=== PATIENT | female | born 2000 | race Caucasian/White ===

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

== ENCOUNTER 2021-01-11 16:20 | Emergency (ER) | payer SELFPAY ==
[~2021-01-11] VITALS: Ht 157.2 cm; Wt 57.3 kg
[~2021-01-11 16:20] MED LIST changes: +ALPR0.25 PO; -CALC600T12 PO; +CLC600T PO
--- NOTE | 2021-01-11 18:02 | Diagnostic Imaging Report ---
Indication: Fall, right arm injury. Comparison: None. Findings: 2 views of the right humerus demonstrate no fracture or dislocation. Articular surfaces are normal. No osseous lesion seen. Impression: Negative right humerus. Dictated by: Dictated on workstation # [id number]
--- NOTE | 2021-01-11 18:21 | ED Upper Extremity ---
General Chief Complaint: Upper Extremity Stated Complaint: FALL / R ELBOW INJ Nursing Triage Note: AMB TO ROOM WITH MOTHER PATIENT REPORTS WAS WATCHING TV ROLLED OVER ON COUCH AND FELL ON R ELBOW C/O WITH NUMBNESS AND TINGLING IN ARM GOOD CMS IN ARM RADIAL PULSE STRONG Source: patient, family Exam Limitations: no limitations History of Present Illness Date Seen by Provider: Jan 11, 2021 Time Seen by Provider: 18:08 Initial Comments Patient is a 20-year-old female who presents to the emergency room today with a chief complaint of right elbow pain that caused some numbness and tingling in her arm after she fell off a couch. Patient states this happened around 4:00 this afternoon. She states that actually feels a little bit better now. She denies any weakness in the right upper extremity. She is right-hand dominant. Patient states that she landed directly on the end of her elbow when she rolled off the couch. Patient denies hitting her head or loss of consciousness. No other complaints of recent illness or injury. Onset: just prior to arrival (4 PM) Pain/Injury Location: right elbow Method of Injury: fell Modifying Factors: Improves With Rest Allergies and Home Medications Allergies Uncoded Allergies: TOMATO SOUP (Allergy, Unknown, 07/28/18) Home Medications Alprazolam 0.25 Mg Tablet, 0.25 MG PO BID PRN for ANXIETY Prescribed by: BRANDON LAURENT on 11/24/19 0008 Medroxyprogesterone Acetate 150 Mg/1 Ml Syringe, 150 MG IM UD, (Reported) Patient Home Medication List Home Medication List Reviewed: Yes Review of Systems Constitutional: see HPI EENTM: no symptoms reported Respiratory: no symptoms reported Cardiovascular: no symptoms reported Gastrointestinal: no symptoms reported Genitourinary: no symptoms reported Musculoskeletal: joint pain (Right elbow) Skin: no symptoms reported All Other Systems Reviewed Negative Unless Noted: Yes Past Ahsniie-Taosui-Wfflxl Hx Patient Social History Alcohol Use: Denies Use Smoking Status: Never a Smoker 2nd Hand Smoke Exposure: Yes Recent Infectious Disease Expo: No Recent Hopitalizations: No Immunizations Up To Date Tetanus Booster (TDap): Less than 5yrs PED Vaccines UTD: Yes Seasonal Allergies Seasonal Allergies: Yes Past Medical History Surgeries: Yes Adenoidectomy, Tonsillectomy Respiratory: No Cardiac: No Neurological: No 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 oz. 56.153041kp; 23.00 BMI Method:Stated General Appearance: WD/WN, no apparent distress HEENT: PERRL/EOMI Cardiovascular: regular rate, rhythm (Distal pulses intact) Respiratory: no respiratory distress, no accessory muscle use Shoulder: normal inspection, non-tender, no evidence of injury, normal ROM Elbow/Forearm: normal inspection, non-tender, no evidence of injury, normal ROM, Right Wrist: Yes normal inspection, Yes non-tender, Yes normal ROM Hand: normal inspection, non-tender, no evidence of injury, normal ROM Neurologic/Psychiatric: no motor/sensory deficits, alert, normal mood/affect, oriented x 3 Skin: normal color, warm/dry Progress/Results/Core Measures Results/Orders Vital Signs/I&O 01/11/21 16:40 Temp 36.8 Pulse 89 Resp 18 B/P (MAP) 111/71 O2 Delivery Room Air Departure Impression Primary Impression: Elbow contusion Qualified Codes: S50.01XA - Contusion of right elbow, initial encounter Disposition: HOME, SELF-CARE Condition: Stable Departure-Patient Inst. Decision time for Depature: 18:19 Referrals: [facility] (PCP/Family) Primary Care Physician Patient Instructions: Contusion (DC) Add. Discharge Instructions: Use over the counter Ibuprofen and or tylenol as needed for pain. Ice pack for comfort. Return to the ER for any worsening pain, numbness, tingling or other emergent concerning symptoms. SHERMAN GILES MD Jan 11, 2021 18:21
[2021-01-11] MEDS ORDERED: IBUPROFEN TABLET 200 MG TAB PO ONE (18:30)
== END 2021-01-11 18:30 | disposition home or self-care (01) ==
LOC: EDUNIT# 16:20 → ER 16:22
DX: S50.01XA Contusion of right elbow, initial encounter (principal); Z77.22 Contact with and (suspected) exposure to environmental tobacco smoke (acute) (chronic); W08.XXXA Fall from other furniture, initial encounter
CPT/HCPCS: 73060

== ENCOUNTER 2021-12-02 00:32 | Emergency (ER) | payer BC ==
[~2021-12-02] VITALS: Ht 158 cm; Wt 58.0 kg
[~2021-12-02 00:32] MED LIST changes: +CALC600T91 PO; -CLC600T PO; -SULF1TAB35 PO; +SULF1TAB38 PO
[2021-12-02] MEDS ORDERED: NORG1TAB68 (00:41)
[2021-12-02] MEDS ORDERED: PROP10TA8 (00:41)
--- NOTE | 2021-12-02 00:58 | ED General ---
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 DENIES ANY MISSED DOSES OF MEDICATIONS OR CHANGES IN MEDICATIONS PT DOES NOT SEE A NEUROLOGIST--GOES TO [facility]- IN [place]. PT SEES DR. SRINIVASAN, WITH [facility], AND HAD AN APPOINTMENT 2 DAYS AGO FOR ROUTINE FOLLOW UP, STATES THAT SHE HAS DISCUSSED THIS PROBLEM WITH DR. SRINIVASAN. PT HAS NOT HAD ANY INCONTINENCE OR HAS ANY POST ICTAL SYMPTOMS WITH THESE EPISODES STATES LAST WEEK SHE "WAS HAVING HOT AND COLD FLASHES AND SHORT OF BREATH" --STATES SHE HAD NEGATIVE HOME COVID-19 TEST AND NEGATIVE COVID-19 TEST AT [facility] STATES SHE HAS HAD 2 COVID-19 VACCINES, BUT NOT A BOOSTER HAS "CHRONIC MIGRAINES" BUT DENIES HEADACHE TODAY NO OTHER CHRONIC ILLNESSES DENIES SMOKING CIGARETTES OR USING ALCOHOL DENIES ANY OTHER DRUG USE BESIDES MARIJUANA PCP: Erick FOSTER AT [facility] Allergies and Home Medications Allergies Uncoded Allergies: TOMATO SOUP (Allergy, Unknown, 07/28/18) Patient Home Medication List Home Medication List Reviewed: Yes Hydroxyzine Pamoate (Hydroxyzine Pamoate) 50 Mg Capsule, 50 MG PO Q6H PRN for ANXIETY Prescribed by: SHAYNE MADRID on 12/02/21 0138 Norgestimate-Ethinyl Estradiol (Norgestimate-Eth Estradiol Tab) 1 Each Tablet, (Reported) Entered as Reported by: BRITTANY URIBE on 12/02/2140 Last Action: New Order Propranolol HCl (Propranolol HCl) 10 Mg Tablet, (Reported) Entered as Reported by: BRITTANY URIBE on 12/02/2140 Last Action: New Order Discontinued Medications Alprazolam (Xanax) 0.25 Mg Tablet, 0.25 MG PO BID PRN for ANXIETY Discontinued Reason: No Longer Taking Prescribed by: BRANDON LAURENT on 11/24/19 0008 Last Action: Discontinued Medroxyprogesterone Acetate (Depo-Provera) 150 Mg/1 Ml Syringe, 150 MG IM UD, (Reported) Discontinued Reason: No Longer Taking Entered as Reported by: ANNA RUIZ on 07/23/17 173 Last Action: Discontinued Review of Systems Review of Systems Constitutional: no symptoms reported EENTM: no symptoms reported Respiratory: no symptoms reported Cardiovascular: no symptoms reported Gastrointestinal: no symptoms reported Genitourinary: no symptoms reported LMP: Nov 25, 2021 (NO CONTROL) Musculoskeletal: no symptoms reported Skin: no symptoms reported Psychiatric/Neurological: See HPI Hematologic/Lymphatic: No Symptoms Reported Immunological/Allergic: no symptoms reported Past Ftwiqsq-Wnvpsc-Hxbwxh Hx Patient Social History Tobacco Use?: No Substance use?: Yes Substance type: Marijuana Additional substance use comme: SMOKES MARIJUANA AND USES CBD OIL PILLS Substance frequency: Daily Alcohol Use?: No Pt feels they are or have been: No Immunizations Up To Date Tetanus Booster (TDap): Less than 5yrs PED Vaccines UTD: Yes COVID19 Vaccine Duralumin Mechanic: X2 Seasonal Allergies Seasonal Allergies: Yes Past Medical History Surgery/Hospitalization HX: SEIZURES, ANXIETY, LEG SURGERY Surgeries: Yes (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) Adenoidectomy, Orthopedic, Tonsillectomy Respiratory: No Cardiac: No Neurological: Yes ("SEIZURES FROM ANXIETY" ) Headaches /Migraines Last Menstrual Period: Nov 25, 2021 Genitourinary: No Gastrointestinal: No Musculoskeletal: Yes (BILAT LEG SURGERY FOR CONGENITAL HIP DYSPLASIA) Endocrine: No HEENT: No Cancer: No Psychosocial: Yes Pseudo Seizures, Anxiety Integumentary: No Blood Disorders: No Physical Exam Vital Signs Vital Signs - First Documented 12/02/21 00:39 Temp 37.0 Pulse 106 Resp 18 B/P (MAP) 126/94 (105) Pulse Ox 96 O2 Delivery Room Air Capillary Refill : Less Than 3 Seconds Height, Weight, BMI Height: 5'2.00" Weight: 125lbs. oz. 56.320800bz; 23.00 BMI Method:Stated General Appearance: No Apparent Distress, WD/WN, Other (DOES NOT APPEAR POST ICTAL OR ILL OR TO BE IN ANY DISCOMFORT OR DISTRESS) HEENT: PERRL/EOMI Neck: Normal Inspection Respiratory: Normal Breath Sounds, No Accessory Muscle Use, No Respiratory Distress Cardiovascular: Regular Rate, Rhythm, No Murmur Gastrointestinal: Non Tender, Soft Back: Normal Inspection Extremity: Normal Inspection Neurologic/Psychiatric: Alert, Oriented x3, No Motor/Sensory Deficits, Normal Mood/Affect, rehab specialist II-XII Norm as Tested Skin: Normal Color, Warm/Dry Progress/Results/Core Measures Suspected Sepsis SIRS Temperature: Pulse: 106 Respiratory Rate: 18 Laboratory Tests 12/02/21 00:47: White Blood Count 4.6 Blood Pressure 126 /94 Mean: 105 Laboratory Tests 12/02/21 00:47: Creatinine 0.70, Platelet Count 232, Total Bilirubin 0.4 Results/Orders Lab Results Laboratory Tests Test 12/02/21 00:45 12/02/21 00:47 12/02/21 00:58 Range/Units Influenza Type A (RT-PCR) Not Detected Not Detecte Influenza Type B (RT-PCR) Not Detected Not Detecte SARS-CoV-2 RNA (RT-PCR) Not Detected Not Detecte White Blood Count 4.6 4.3-11.0 10^3/uL Red Blood Count 3.89 3.80-5.11 10^6/uL Hemoglobin 11.3 L 11.5-16.0 g/dL Hematocrit 35 35-52 % Mean Corpuscular Volume 90 80-99 fL Mean Corpuscular Hemoglobin 29 25-34 pg Mean Corpuscular Hemoglobin Concent 32 32-36 g/dL Red Cell Distribution Width 13.1 10.0-14.5 % Platelet Count 232 130-400 10^3/uL Mean Platelet Volume 10.2 9.0-12.2 fL Immature Granulocyte % (Auto) 0 % Neutrophils (%) (Auto) 28 L 42-75 % Lymphocytes (%) (Auto) 57 H 12-44 % Monocytes (%) (Auto) 11 0-12 % Eosinophils (%) (Auto) 2 0-10 % Basophils (%) (Auto) 1 0-10 % Neutrophils # (Auto) 1.3 L 1.8-7.8 10^3/uL Lymphocytes # (Auto) 2.6 1.0-4.0 10^3/uL Monocytes # (Auto) 0.5 0.0-1.0 10^3/uL Eosinophils # (Auto) 0.1 0.0-0.3 10^3/uL Basophils # (Auto) 0.1 0.0-0.1 10^3/uL Immature Granulocyte # (Auto) 0.0 0.0-0.1 10^3/uL Sodium Level 139 135-145 MMOL/L Potassium Level 3.4 L 3.6-5.0 MMOL/L Chloride Level 106 98-107 MMOL/L Carbon Dioxide Level 21 21-32 MMOL/L Anion Gap 12 5-14 MMOL/L Blood Urea Nitrogen 12 7-18 MG/DL Creatinine 0.70 0.60-1.30 MG/DL Estimat Glomerular Filtration Rate 127 BUN/Creatinine Ratio 17 Glucose Level 91 70-105 MG/DL Calcium Level 9.2 8.5-10.1 MG/DL Corrected Calcium 9.1 8.5-10.1 MG/DL Magnesium Level 2.1 1.6-2.4 MG/DL Total Bilirubin 0.4 0.1-1.0 MG/DL Aspartate Amino Transf (AST/SGOT) 14 5-34 U/L Alanine Aminotransferase (ALT/SGPT) 8 0-55 U/L Alkaline Phosphatase 69 40-136 U/L Total Creatine Kinase 77 29-168 U/L Creatine Kinase MB 0.4 <6.6 NG/ML Myoglobin 17.2 10.0-92.0 NG/ML Total Protein 7.1 6.4-8.2 GM/DL Albumin 4.1 3.2-4.5 GM/DL Serum Test, Qualitative NEGATIVE NEGATIVE Acetaminophen Level < 10 L 10-30 UG/ML Serum Alcohol < 10 <10 MG/DL Urine Color YELLOW Urine Clarity CLEAR Urine pH 6.0 5-9 Urine Specific [place] 1.020 1.016-1.022 Urine Protein NEGATIVE NEGATIVE Urine Glucose (UA) NEGATIVE NEGATIVE Urine Ketones NEGATIVE NEGATIVE Urine Nitrite NEGATIVE NEGATIVE Urine Bilirubin NEGATIVE NEGATIVE Urine Urobilinogen 0.2 < = 1.0 MG/DL Urine Leukocyte Esterase TRACE H NEGATIVE Urine RBC (Auto) NEGATIVE NEGATIVE Urine RBC NONE /HPF Urine WBC NONE /HPF Urine Squamous Epithelial Cells 10-25 H /HPF Urine Crystals NONE /LPF Urine Bacteria NEGATIVE /HPF Urine Casts NONE /LPF Urine Mucus SMALL H /LPF Urine Culture Indicated NO Urine Opiates Screen NEGATIVE NEGATIVE Urine Oxycodone Screen NEGATIVE NEGATIVE Urine Methadone Screen NEGATIVE NEGATIVE Urine Propoxyphene Screen NEGATIVE NEGATIVE Urine Barbiturates Screen POSITIVE H NEGATIVE Ur Tricyclic Antidepressants Screen NEGATIVE NEGATIVE Urine Phencyclidine Screen NEGATIVE NEGATIVE Urine Amphetamines Screen NEGATIVE NEGATIVE Urine Methamphetamines Screen NEGATIVE NEGATIVE Urine Benzodiazepines Screen NEGATIVE NEGATIVE Urine Cocaine Screen NEGATIVE NEGATIVE Urine Cannabinoids Screen NEGATIVE NEGATIVE My Orders Orders - SHAYNE MADRID DO Ed Iv/Invasive Line Start (12/02/21 00:46) Monitor-Rhythm Ecg Trace Only (12/02/21 00:46) Acetaminophen (12/02/21 00:46) Alcohol (12/02/21 00:46) Cbc With Automated Diff (12/02/21 00:46) Comprehensive Metabolic Panel (12/02/21 00:46) Creatine Kinase (12/02/21 00:46) Creatine Kinase Mb (12/02/21 00:46) Drug Screen Stat (Urine) (12/02/21 00:46) Hcg,Qualitative Serum (12/02/21 00:46) Magnesium (12/02/21 00:46) Ua Culture If Indicated (12/02/21 00:46) Myoglobin Serum (12/02/21 00:46) Covid 19 Inhouse Test (12/02/21 00:46) Influenza A And B By Pcr (12/02/21 00:46) Isolation Central Supply Req (12/02/21 00:46) Hydroxyzine Cap/Tab (Vistaril) (12/02/21 01:45) Medications Given in ED Current Medications Medications Dose Ordered Sig/Balwinder Route Start Time Stop Time Status Last Admin Dose Admin Hydroxyzine Pamoate 50 mg ONCE ONCE PO 12/02/21 01:45 12/02/21 01:46 DC 12/02/21 01:43 50 MG Vital Signs/I&O 12/02/21 12/02/21 00:39 01:44 Temp 37.0 36.8 Pulse 106 79 Resp 18 16 B/P (MAP) 126/94 (105) 100/60 Pulse Ox 96 99 O2 Delivery Room Air Room Air Capillary Refill : Less Than 3 Seconds Blood Pressure Mean: 105 Progress Note : Progress Note UNEVENTFUL ER STAY NO SYMPTOMS OF ANY KIND DURING ER STAY NO SEIZURE-LIKE ACTIVITY AT ANY TIME DURING ER STAY STATES SHE FEELS FINE AND FEELS COMFORTABLE GOING HOME Departure Impression Primary Impression: SELF REPORTED PSEUDOSEIZURES Disposition: 01 HOME, SELF-CARE Condition: Stable Departure-Patient Inst. Decision time for Depature: 01:35 Referrals: [facility] (PCP/Family) Primary Care Physician Patient Instructions: Anxiety, Adult (DC), Seizures, Adult (DC) Add. Discharge Instructions: HOME, REST CONTINUE YOUR REGULAR MEDICATIONS PRESCRIBED FOLLOW UP WITH [facility] ON FRIDAY FOR FURTHER CARE NO DRIVING OR OPERATING ANY MACHINERY All discharge instructions reviewed with patient and/or family. Voiced understanding. Scripts Hydroxyzine Pamoate (Hydroxyzine Pamoate) 50 Mg Capsule 50 MG PO Q6H PRN for ANXIETY, #10 CAP Prov: SHAYNE MADRID DO 12/02/21 SHAYNE MADRID DO Dec 02, 2021 00:58
[2021-12-02 00:59] LABS: BASOPHILS # (AUTO) 0.1 10^3/uL (0.0-0.1); BASOPHILS % (AUTO) 1 % (0-10); EOSINOPHILS # (AUTO) 0.1 10^3/uL (0.0-0.3); EOSINOPHILS % (AUTO) 2 % (0-10); HEMATOCRIT 35 % (35-52); HEMOGLOBIN 11.3 g/dL (11.5-16.0); LYMPHOCYTES # (AUTO) 2.6 10^3/uL (1.0-4.0); LYMPHOCYTES % (AUTO) 57 % (12-44); MEAN CORPUSCULAR HEMOGLOBIN 29 pg (25-34); MEAN CORPUSCULAR HGB CONC 32 g/dL (32-36); MEAN CORPUSCULAR VOLUME 90 fL (80-99); MEAN PLATELET VOLUME 10.2 fL (9.0-12.2); MONOCYTES # (AUTO) 0.5 10^3/uL (0.0-1.0); MONOCYTES % (AUTO) 11 % (0-12); NEUTROPHILS # (AUTO) 1.3 10^3/uL (1.8-7.8); NEUTROPHILS % (AUTO) 28 % (42-75); PLATELET COUNT 232 10^3/uL (130-400); WHITE BLOOD COUNT 4.6 10^3/uL (4.3-11.0)
[2021-12-02 01:03] LABS: BILIRUBIN,URINE NEGATIVE (NEGATIVE); CLARITY,URINE CLEAR; COLOR,URINE YELLOW; GLUCOSE, URINE (UA) NEGATIVE (NEGATIVE); KETONES,URINE NEGATIVE (NEGATIVE); LEUKOCYTE ESTERASE ,URINE TRACE (NEGATIVE); NITRITE,URINE NEGATIVE (NEGATIVE); PROTEIN,URINE NEGATIVE (NEGATIVE)
[2021-12-02 01:11] LABS: BACTERIA,URINE NEGATIVE /HPF
[2021-12-02 01:12] LABS: CHLORIDE 106 MMOL/L (98-107); POTASSIUM 3.4 MMOL/L (3.6-5.0); SODIUM 139 MMOL/L (135-145)
[2021-12-02 01:13] LABS: ALBUMIN 4.1 GM/DL (3.2-4.5)
[2021-12-02 01:14] LABS: CALCIUM 9.2 MG/DL (8.5-10.1)
[2021-12-02 01:15] LABS: GLUCOSE 91 MG/DL (70-105); TOTAL PROTEIN 7.1 GM/DL (6.4-8.2)
[2021-12-02 01:16] LABS: CARBON DIOXIDE 21 MMOL/L (21-32)
[2021-12-02 01:17] LABS: BILIRUBIN,TOTAL 0.4 MG/DL (0.1-1.0)
[2021-12-02 01:19] LABS: ALKALINE PHOSPHATASE 69 U/L (40-136); GFR ESTIMATED 127
[2021-12-02 01:20] LABS: BUN/CREATININE RATIO 17
[2021-12-02 01:22] LABS: ALANINE AMINOTRANSFERASE 8 U/L (0-55); MAGNESIUM 2.1 MG/DL (1.6-2.4)
[2021-12-02 01:23] LABS: CREATINE KINASE 77 U/L (29-168)
[2021-12-02 01:29] LABS: ACETAMINOPHEN < 10 UG/ML (10-30); CREATINE KINASE MB 0.4 NG/ML (<6.6)
[2021-12-02 01:30] LABS: AMPHETAMINE SCREEN, URINE NEGATIVE (NEGATIVE); BARBITURATE SCREEN URINE POSITIVE (NEGATIVE); BENZODIAZEPINES SCREEN URINE NEGATIVE (NEGATIVE); CANNABINOID SCREEN, URINE NEGATIVE (NEGATIVE); COCAINE SCREEN URINE NEGATIVE (NEGATIVE); METHADONE STAT NEGATIVE (NEGATIVE); METHAMPHETAMINE SCREEN URINE S NEGATIVE (NEGATIVE); OPIATE SCREEN URINE NEGATIVE (NEGATIVE); OXYCODONE STAT NEGATIVE (NEGATIVE); PROPOXYPHENE STAT NEGATIVE (NEGATIVE); TRICYCLIC ANTIDEPRESSANTS SCRE NEGATIVE (NEGATIVE)
[2021-12-02] MEDS ORDERED: HYDR50CA3 PO (01:38)
[2021-12-02 01:44] VITALS: BP 100/60
[2021-12-02] MEDS ORDERED: hydrOXYzine (VISTARIL/ATARAX) 25 MG capsule/tablet PO ONE (01:45)
== END 2021-12-02 01:45 | disposition home or self-care (01) ==
LOC: EDUNIT# 00:32 → ER 00:33
DX: R56.9 Unspecified convulsions (principal); F41.9 Anxiety disorder, unspecified; Z20.822 Contact with and (suspected) exposure to COVID-19
CPT/HCPCS: 80053; 80306; 81000; 82550; 82553; 83735; 83874; 84703; 85025; 87636; 93041; G0480 ×2; 36415; 80320; 80329

== ENCOUNTER 2021-12-26 13:53 | Emergency (ER) | payer BC ==
[~2021-12-26] VITALS: Ht 157 cm; Wt 54.0 kg
[~2021-12-26 13:53] MED LIST changes: +HYDR50CA3 PO; +NORG1TAB68; +PROP10TA8
--- NOTE | 2021-12-26 14:13 | ED Abdominal Pain ---
General Stated Complaint: VAGINAL BLEEDING/PRESSURE Source of Information: Patient Exam Limitations: No Limitations History of Present Illness Date Seen by Provider: Dec 26, 2021 Time Seen by Provider: 14:11 Initial Comments To ER with vaginal bleeding and pressure. It is time for her menses. She developed some cramping and bleeding yesterday which was typical for her menstrual cycle. Today she is bleeding yes but feels the urge to push she states. Prior to yesterday she denies any abdominal pain or vaginal discharge. No fevers or chills. She thinks this is probably just her menstrual period but was little concerned based on this urge to push. Has not been sexually active for a few weeks. Timing/Duration: 1-2 Days Severity/Quality: Cramping Location: Suprapubic Radiation: No Radiation Activities at Onset: None Associated Symptoms: Nausea/Vomiting Allergies and Home Medications Allergies Uncoded Allergies: TOMATO SOUP (Allergy, Unknown, 07/28/18) Patient Home Medication List Home Medication List Reviewed: Yes Hydroxyzine Pamoate (Hydroxyzine Pamoate) 50 Mg Capsule, 50 MG PO Q6H PRN for ANXIETY Prescribed by: SHAYNE MADRID on 12/02/21137 Norgestimate-Ethinyl Estradiol (Norgestimate-Eth Estradiol Tab) 1 Each Tablet, (Reported) Entered as Reported by: BRITTANY URIBE on 12/02/2140 Propranolol HCl (Propranolol HCl) 10 Mg Tablet, (Reported) Entered as Reported by: BRITTANY URIBE on 12/02/2140 Review of Systems Review of Systems Constitutional: see HPI EENTM: No Symptoms Reported Respiratory: No Symptoms Reported Cardiovascular: No Symptoms Reported Gastrointestinal: See HPI, Abdominal Pain Genitourinary: No Symptoms Reported Musculoskeletal: no symptoms reported Skin: no symptoms reported Psychiatric/Neurological: No Symptoms Reported Endocrine: No Symptoms Reported Hematologic/Lymphatic: No Symptoms Reported Past Haifqbh-Zaufim-Pdsvgr Hx Immunizations Up To Date Tetanus Booster (TDap): Less than 5yrs PED Vaccines UTD: Yes Seasonal Allergies Seasonal Allergies: Yes Past Medical History Surgery/Hospitalization HX: SEIZURES, ANXIETY, LEG SURGERY Surgeries: Yes (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 oz. 56.622513qz; 23.00 BMI Method:Stated General Appearance: WD/WN, no apparent distress, other (Alert and oriented walks upright, not forward flexed. No fever no nausea no vomiting. Hemodynamically stable nontoxic-appearing.) HEENT: PERRL/EOMI, normal ENT inspection Neck: non-tender, full range of motion Respiratory: no respiratory distress, no accessory muscle use Cardiovascular: regular rate, rhythm Gastrointestinal: normal bowel sounds, non tender, soft Extremities: normal range of motion, non-tender Neurologic/Psychiatric: alert, normal mood/affect, oriented x 3 Skin: normal color, warm/dry Progress/Results/Core Measures Results/Orders Lab Results Laboratory Tests Test 12/26/21 14:09 12/26/21 14:22 Range/Units Urine Color YELLOW Urine Clarity SL CLOUDY Urine pH 7.5 5-9 Urine Specific [place] 1.015 L 1.016-1.022 Urine Protein NEGATIVE NEGATIVE Urine Glucose (UA) NEGATIVE NEGATIVE Urine Ketones NEGATIVE NEGATIVE Urine Nitrite NEGATIVE NEGATIVE Urine Bilirubin NEGATIVE NEGATIVE Urine Urobilinogen 0.2 < = 1.0 MG/DL Urine Leukocyte Esterase NEGATIVE NEGATIVE Urine RBC (Auto) 3+ H NEGATIVE Urine RBC 25-50 H /HPF Urine WBC NONE /HPF Urine Squamous Epithelial Cells 2-5 /HPF Urine Crystals NONE /LPF Urine Bacteria NEGATIVE /HPF Urine Casts NONE /LPF Urine Mucus NEGATIVE /LPF Urine Culture Indicated NO Urine Test NEGATIVE NEGATIVE White Blood Count 3.6 L 4.3-11.0 10^3/uL Red Blood Count 3.91 3.80-5.11 10^6/uL Hemoglobin 11.6 11.5-16.0 g/dL Hematocrit 35 35-52 % Mean Corpuscular Volume 90 80-99 fL Mean Corpuscular Hemoglobin 30 25-34 pg Mean Corpuscular Hemoglobin Concent 33 32-36 g/dL Red Cell Distribution Width 13.3 10.0-14.5 % Platelet Count 227 130-400 10^3/uL Mean Platelet Volume 10.1 9.0-12.2 fL Immature Granulocyte % (Auto) 0 % Neutrophils (%) (Auto) 42 42-75 % Lymphocytes (%) (Auto) 42 12-44 % Monocytes (%) (Auto) 13 H 0-12 % Eosinophils (%) (Auto) 3 0-10 % Basophils (%) (Auto) 1 0-10 % Neutrophils # (Auto) 1.5 L 1.8-7.8 10^3/uL Lymphocytes # (Auto) 1.5 1.0-4.0 10^3/uL Monocytes # (Auto) 0.5 0.0-1.0 10^3/uL Eosinophils # (Auto) 0.1 0.0-0.3 10^3/uL Basophils # (Auto) 0.0 0.0-0.1 10^3/uL Immature Granulocyte # (Auto) 0.0 0.0-0.1 10^3/uL Sodium Level 139 135-145 MMOL/L Potassium Level 3.7 3.6-5.0 MMOL/L Chloride Level 110 H 98-107 MMOL/L Carbon Dioxide Level 20 L 21-32 MMOL/L Anion Gap 9 5-14 MMOL/L Blood Urea Nitrogen 17 7-18 MG/DL Creatinine 0.62 0.60-1.30 MG/DL Estimat Glomerular Filtration Rate 131 BUN/Creatinine Ratio 27 Glucose Level 95 70-105 MG/DL Calcium Level 8.6 8.5-10.1 MG/DL Corrected Calcium 8.6 8.5-10.1 MG/DL Total Bilirubin 0.3 0.1-1.0 MG/DL Aspartate Amino Transf (AST/SGOT) 18 5-34 U/L Alanine Aminotransferase (ALT/SGPT) 15 0-55 U/L Alkaline Phosphatase 61 40-136 U/L Total Protein 6.7 6.4-8.2 GM/DL Albumin 4.0 3.2-4.5 GM/DL My Orders Orders - YANETH GREGORY HABILITATION ASSISTANT Cbc With Automated Diff (12/26/21 14:10) Comprehensive Metabolic Panel (12/26/21 14:10) Ua Culture If Indicated (12/26/21 14:10) Hcg,Qualitative Urine (12/26/21 14:10) Ibuprofen Tablet (Motrin Tablet) (12/26/21 14:15) Medications Given in ED Current Medications Medications Dose Ordered Sig/Balwinder Route Start Time Stop Time Status Last Admin Dose Admin Ibuprofen 800 mg ONCE ONCE PO 12/26/21 14:15 12/26/21 14:16 DC 12/26/21 14:26 800 MG Vital Signs/I&O 12/26/21 14:05 Temp 36.1 Pulse 96 Resp 18 B/P (MAP) 141/84 (103) Pulse Ox 99 O2 Delivery Nasal Cannula Departure Impression Primary Impression: Menstrual cramp Disposition: HOME, SELF-CARE Condition: Stable Departure-Patient Inst. Decision time for Depature: 14:38 Referrals: [facility] (PCP) Primary Care Physician REYNA FOSTER APRN (Family) Primary Care Physician Patient Instructions: Menstrual Cramps Add. Discharge Instructions: . Tylenol and ibuprofen for pain control. Return to ER for any concerns Such as unusually heavy bleeding, lightheadedness, fevers or intolerable pain. Work/School Note: Work Release Form Date Seen in the Emergency Department: Dec 26, 2021 Return to Work: Dec 27, 2021 YANETH GREGORY APRN Dec 26, 2021 14:13
[2021-12-26] MEDS ORDERED: IBUPROFEN 800 MG (MOTRIN) TAB PO ONE (14:15)
[2021-12-26 14:16] LABS: BILIRUBIN,URINE NEGATIVE (NEGATIVE); CLARITY,URINE SL CLOUDY; COLOR,URINE YELLOW; GLUCOSE, URINE (UA) NEGATIVE (NEGATIVE); KETONES,URINE NEGATIVE (NEGATIVE); LEUKOCYTE ESTERASE ,URINE NEGATIVE (NEGATIVE); NITRITE,URINE NEGATIVE (NEGATIVE); PH,URINE 7.5 (5-9); PROTEIN,URINE NEGATIVE (NEGATIVE)
[2021-12-26 14:25] LABS: BACTERIA,URINE NEGATIVE /HPF; RBC,URINE 25-50 /HPF
[2021-12-26 14:35] LABS: BASOPHILS % (AUTO) 1 % (0-10); EOSINOPHILS # (AUTO) 0.1 10^3/uL (0.0-0.3); EOSINOPHILS % (AUTO) 3 % (0-10); HEMATOCRIT 35 % (35-52); HEMOGLOBIN 11.6 g/dL (11.5-16.0); LYMPHOCYTES # (AUTO) 1.5 10^3/uL (1.0-4.0); LYMPHOCYTES % (AUTO) 42 % (12-44); MEAN CORPUSCULAR HEMOGLOBIN 30 pg (25-34); MEAN CORPUSCULAR HGB CONC 33 g/dL (32-36); MEAN CORPUSCULAR VOLUME 90 fL (80-99); MEAN PLATELET VOLUME 10.1 fL (9.0-12.2); MONOCYTES # (AUTO) 0.5 10^3/uL (0.0-1.0); MONOCYTES % (AUTO) 13 % (0-12); NEUTROPHILS # (AUTO) 1.5 10^3/uL (1.8-7.8); NEUTROPHILS % (AUTO) 42 % (42-75); PLATELET COUNT 227 10^3/uL (130-400); WHITE BLOOD COUNT 3.6 10^3/uL (4.3-11.0)
[2021-12-26 14:42] LABS: POTASSIUM 3.7 MMOL/L (3.6-5.0)
[2021-12-26 14:43] LABS: CALCIUM 8.6 MG/DL (8.5-10.1)
[2021-12-26 14:44] LABS: TOTAL PROTEIN 6.7 GM/DL (6.4-8.2)
[2021-12-26 14:46] LABS: BILIRUBIN,TOTAL 0.3 MG/DL (0.1-1.0)
[2021-12-26 14:48] LABS: CREATININE SERUM 0.62 MG/DL (0.60-1.30)
[2021-12-26 14:56] VITALS: BP 134/79
== END 2021-12-26 14:58 | disposition home or self-care (01) ==
LOC: EDUNIT# 13:53 → ER 13:55
DX: N94.4 Primary dysmenorrhea (principal); F41.9 Anxiety disorder, unspecified; Z79.899 Other long term (current) drug therapy
CPT/HCPCS: 36415; 80053; 81000; 84703; 85025

== ENCOUNTER → 2022-02-27 | Outpatient (CLI) | payer BC | LOC: LABNPT 09:45 | PROVIDERS: ATTEND Obstetrics & Gynecology | DX: Z11.3 Encounter for screening for infections with a predominantly sexual mode of transmission (principal); R31.9 Hematuria, unspecified; N91.1 Secondary amenorrhea | CPT/HCPCS: 83001; 84146; 84443; 84702; 86703; 86706; 86780; 87491; 87591 ==